=== PATIENT | female | born 1985 | race American Indian/Alaskan Native ===

== ENCOUNTER 2021-03-23 01:33 | Emergency (ER) | payer OTHER ==
[~2021-03-23] VITALS: Ht 160 cm; Wt 47.6 kg
[2021-03-23] MEDS ORDERED: diphenhydrAMINE 50 MG/1 ML VIAL IM ONE (01:45)
[2021-03-23] MEDS ORDERED: diphenhydrAMINE 50 MG/1 ML VIAL ONE (01:46)
--- NOTE | 2021-03-23 02:05 | NUR ---
Patient verbalizes improvement of symptoms which brought her to ED
--- NOTE | 2021-03-23 02:10 | NUR ---
Patient seems to be emotionally labile. Cooperative at times then combative and hostile at others. I had a discussion with patient and her boyfriend about her discharge orders and went over Dr. Alfonso instructions for her in great detail. Verbalizes understanding.
--- NOTE | 2021-03-23 02:14 | NUR ---
Patient discharged to home in stable condition. Written and verbal after care instructions given. Patient verbalizes understanding of instructions. Stressed follow up or return to ER for worsening s/s. Dr. Alfonso advised to take Benadryl q4-6hrs and to follow up with his reccomendation sabino. Steady gait. Verbalized improvement in condition.
[2021-03-23 02:16] VITALS: BP 113/76
== END 2021-03-23 02:16 | disposition home or self-care (01) ==
LOC: ER 01:41
DX: T78.40XA Allergy, unspecified, initial encounter (principal); T78.3XXA Angioneurotic edema, initial encounter
CPT/HCPCS: 96372; 99283; J1200; A4663